=== PATIENT | male | born 1935 | race Caucasian/White ===

== ENCOUNTER 2019-04-26 22:52 | Inpatient (IN) | payer MEDICARE ==
[~2019-04-26] VITALS: Ht 167.6 cm; Wt 78.5 kg
[2019-04-26 22:50] VITALS: BP 124/58
[2019-04-26 22:52] VITALS: BP 124/60
[2019-04-27] MEDS ORDERED: DOCUSATE SODIUM 100MG CAPSULE PO PRN (00:45)
[2019-04-27] MEDS ORDERED: DEXTROSE 50% WATER 50ML SYRINGE IV PRN (00:45)
[2019-04-27] MEDS ORDERED: GUAIFENESIN 200MG/10ML SUGAR FREE UDC PO PRN (00:45)
[2019-04-27] MEDS ORDERED: NITROGLYCERIN 0.4MG TABLET SL SL PRN (00:45)
[2019-04-27] MEDS ORDERED: ACETAMINOPHEN 325MG TABLET PO PRN (00:45)
[2019-04-27] MEDS ORDERED: ONDANSETRON HCL 4MG/2ML INJ IV PRN (00:45)
[2019-04-27] MEDS ORDERED: CLONIDINE 0.1MG TABLET PO PRN (00:45)
[2019-04-27] MEDS ORDERED: TRAMADOL 50MG TABLET PO PRN (00:45)
[2019-04-27] MEDS ORDERED: IPRATROPIUM/ALBUTEROL 0.5-3(2.5)MG/3ML NEB HHN PRN (00:45)
[2019-04-27] MEDS ORDERED: MAGNESIUM/ALUMINUM HYDROXIDE/SIMETHICONE 30ML UDC PO PRN (00:45)
[2019-04-27 02:00] VITALS: BP 114/62
[2019-04-27] MEDS: DILTIAZEM HCL 30MG TABLET PO SCH ×3 (06:00→17:29)
[2019-04-27] MEDS: BLOOD SUGAR DIAGNOSTIC STRIP TEST SCH ×4 (06:22→21:30)
[2019-04-27] MEDS: LACTULOSE 20G/30ML UDC PO SCH ×3 (06:33→21:58)
[2019-04-27] MEDS: SPIRONOLACTONE 25MG TABLET PO SCH ×2 (06:34→17:28)
[2019-04-27] MEDS: INSULIN LISPRO 100 UNITS/ML SUBCUT SCH ×4 (06:50→21:30)
[2019-04-27 07:54] VITALS: BP 118/82
[2019-04-27 08:14] LABS: BASOPHILS % 0.9 % (0.0-2.0); HEMATOCRIT. 38.5 % (42.0-52.0); HEMOGLOBIN. 13.1 g/dL (14.0-18.0); LYMPHOCYTES % 10.7 % (20.0-50.0); MEAN CORPUSCULAR HEMOGLOBIN 34.6 pg (28.0-32.0); MEAN CORPUSCULAR VOLUME 101.3 fL (80.0-94.0); MEAN PLATELET VOLUME 10.3 fl (7.4-10.4); MONOCYTES % 5.8 % (2.0-8.0); NEUTROPHILS % 78.6 % (40.0-76.0); PLATELET 154 x1000/uL (130-400); RED CELL DISTRIBUTION WIDTH 14.3 % (11.6-14.6)
[2019-04-27 08:25] LABS: CHLORIDE 107 mEq/L (98-107)
[2019-04-27] MEDS: ZINC SULFATE 220 MG ( 50 ) CAPSULE PO SCH (08:26)
[2019-04-27] MEDS: ASCORBIC ACID 500 MG TABLET PO SCH ×2 (08:26→21:59)
[2019-04-27] MEDS: LEVETIRACETAM 500MG TABLET PO SCH ×2 (08:26→21:59)
[2019-04-27] MEDS: FAMOTIDINE 20MG TABLET PO SCH ×2 (08:27→21:59)
[2019-04-27] MEDS: SULFAMETHOXAZOLE/TRIMETHOPRIM 800/160MG TABLET PO SCH ×2 (08:27→21:59)
[2019-04-27] MEDS: FUROSEMIDE 20MG TABLET PO SCH ×2 (08:27→21:58)
[2019-04-27 20:00] VITALS: BP 97/56
[2019-04-28] MEDS: DILTIAZEM HCL 30MG TABLET PO SCH ×5 (00:09→23:47)
[2019-04-28] MEDS: LACTULOSE 20G/30ML UDC PO SCH ×3 (05:57→21:44)
[2019-04-28] MEDS: SPIRONOLACTONE 25MG TABLET PO SCH ×2 (05:57→17:46)
[2019-04-28] MEDS: BLOOD SUGAR DIAGNOSTIC STRIP TEST SCH ×4 (05:58→21:42)
[2019-04-28] MEDS: INSULIN LISPRO 100 UNITS/ML SUBCUT SCH ×4 (07:30→21:00)
[2019-04-28 08:00] VITALS: BP 120/78
[2019-04-28] MEDS: SULFAMETHOXAZOLE/TRIMETHOPRIM 800/160MG TABLET PO SCH ×2 (10:11→21:41)
[2019-04-28] MEDS: LEVETIRACETAM 500MG TABLET PO SCH ×2 (10:11→21:41)
[2019-04-28] MEDS: FUROSEMIDE 20MG TABLET PO SCH ×2 (10:11→21:41)
[2019-04-28] MEDS: ASCORBIC ACID 500 MG TABLET PO SCH ×2 (10:11→21:41)
[2019-04-28] MEDS: FAMOTIDINE 20MG TABLET PO SCH ×2 (10:11→21:41)
[2019-04-28] MEDS: ZINC SULFATE 220 MG ( 50 ) CAPSULE PO SCH (10:11)
[2019-04-28] MEDS: NYSTATIN POWDER 15GM TOP SCH ×2 (13:26→21:49)
[2019-04-28 20:00] VITALS: BP 115/55
[2019-04-28 20:30] LABS: CLARITY URINE CLOUDY (CLEAR); COLOR URINE YELLOW (YELLOW); KETONES URINE NEGATIVE (NEGATIVE); LEUKOCYTE ESTERASE URINE 1+ (NEGATIVE); NITRITE URINE NEGATIVE (NEGATIVE); OCCULT BLOOD URINE NEGATIVE (NEGATIVE); PH URINE 5.5 (4.5-8.0); PROTEIN URINE TRACE (NEGATIVE); SPECIFIC GRAVITY URINE 1.018 (1.005-1.030); UROBILINOGEN URINE 0.2 E.U./dL (0.2-1.0)
[2019-04-29] MEDS ORDERED: MIRT7.5T11 MT (02:20)
[2019-04-29] MEDS ORDERED: PRAV10TA35 MT (02:20)
[2019-04-29] MEDS: LACTULOSE 20G/30ML UDC PO SCH (05:49)
[2019-04-29] MEDS: BLOOD SUGAR DIAGNOSTIC STRIP TEST SCH ×4 (05:49→21:54)
[2019-04-29] MEDS: DILTIAZEM HCL 30MG TABLET PO SCH ×3 (05:50→17:48)
[2019-04-29] MEDS: SPIRONOLACTONE 25MG TABLET PO SCH ×2 (05:50→17:48)
[2019-04-29] MEDS: INSULIN LISPRO 100 UNITS/ML SUBCUT SCH ×4 (06:00→21:54)
[2019-04-29 07:48] LABS: EOSINOPHILS % 2.9 % (0.0-5.0); HEMATOCRIT. 39.1 % (42.0-52.0); HEMOGLOBIN. 13.4 g/dL (14.0-18.0); LYMPHOCYTES % 10.4 % (20.0-50.0); MEAN CORPUSCULAR HEMOGLOBIN 34.6 pg (28.0-32.0); NEUTROPHILS % 78.7 % (40.0-76.0); PLATELET 184 x1000/uL (130-400); RED BLOOD CELL COUNT 3.87 mill/uL (4.7-6.1); RED CELL DISTRIBUTION WIDTH 14.3 % (11.6-14.6)
[2019-04-29 08:16] VITALS: BP 126/69
[2019-04-29 08:55] LABS: PHOSPHORUS 3.6 mg/dL (2.5-4.9)
[2019-04-29 10:25] LABS: FOLIC ACID (FOLATE) SERUM 19.7 ng/mL (>5.38)
[2019-04-29] MEDS: LEVETIRACETAM 500MG TABLET PO SCH ×2 (10:35→21:10)
[2019-04-29] MEDS: ASCORBIC ACID 500 MG TABLET PO SCH ×2 (10:36→21:10)
[2019-04-29] MEDS: FAMOTIDINE 20MG TABLET PO SCH (10:36)
[2019-04-29] MEDS: SULFAMETHOXAZOLE/TRIMETHOPRIM 800/160MG TABLET PO SCH ×2 (10:36→21:10)
[2019-04-29] MEDS: FUROSEMIDE 20MG TABLET PO SCH ×2 (10:36→21:10)
[2019-04-29] MEDS: ZINC SULFATE 220 MG ( 50 ) CAPSULE PO SCH (10:36)
[2019-04-29] MEDS: NYSTATIN POWDER 15GM TOP SCH ×2 (10:36→21:27)
[2019-04-29] MEDS ORDERED: LACTULOSE 20G/30ML UDC PO PRN (12:00)
[2019-04-29 20:00] VITALS: BP 106/68
[2019-04-30] MEDS: BLOOD SUGAR DIAGNOSTIC STRIP TEST SCH ×4 (06:14→21:21)
[2019-04-30] MEDS: SPIRONOLACTONE 25MG TABLET PO SCH ×2 (06:18→17:30)
[2019-04-30] MEDS: DILTIAZEM HCL 30MG TABLET PO SCH ×5 (06:18→17:31)
[2019-04-30] MEDS: INSULIN LISPRO 100 UNITS/ML SUBCUT SCH ×4 (09:00→21:00)
[2019-04-30 09:07] VITALS: BP 132/72
[2019-04-30] MEDS: FAMOTIDINE 20MG TABLET PO SCH (09:13)
[2019-04-30] MEDS: NYSTATIN POWDER 15GM TOP SCH ×2 (09:13→21:22)
[2019-04-30] MEDS: SULFAMETHOXAZOLE/TRIMETHOPRIM 800/160MG TABLET PO SCH ×2 (09:13→21:21)
[2019-04-30] MEDS: FUROSEMIDE 20MG TABLET PO SCH ×2 (09:13→21:21)
[2019-04-30] MEDS: LEVETIRACETAM 500MG TABLET PO SCH ×2 (09:13→21:21)
[2019-04-30] MEDS: ZINC SULFATE 220 MG ( 50 ) CAPSULE PO SCH (09:13)
[2019-04-30] MEDS: ASCORBIC ACID 500 MG TABLET PO SCH ×2 (09:13→21:21)
[2019-04-30 20:00] VITALS: BP 115/54
[2019-05-01] MEDS: BLOOD SUGAR DIAGNOSTIC STRIP TEST SCH ×4 (06:36→21:27)
[2019-05-01] MEDS: SPIRONOLACTONE 25MG TABLET PO SCH ×2 (06:37→17:19)
[2019-05-01] MEDS: DILTIAZEM HCL 30MG TABLET PO SCH ×5 (06:37→23:49)
[2019-05-01] MEDS: INSULIN LISPRO 100 UNITS/ML SUBCUT SCH ×4 (06:40→21:31)
[2019-05-01 07:16] LABS: BASOPHILS % 1.4 % (0.0-2.0); EOSINOPHILS % 3.8 % (0.0-5.0); HEMATOCRIT. 38.5 % (42.0-52.0); HEMOGLOBIN. 13.1 g/dL (14.0-18.0); LYMPHOCYTES % 17.3 % (20.0-50.0); MEAN CORPUSCULAR HEMOGLOBIN 34.2 pg (28.0-32.0); MEAN CORPUSCULAR VOLUME 100.4 fL (80.0-94.0); MEAN PLATELET VOLUME 9.9 fl (7.4-10.4); MONOCYTES % 9.3 % (2.0-8.0); NEUTROPHILS % 68.2 % (40.0-76.0); PLATELET 193 x1000/uL (130-400); RED BLOOD CELL COUNT 3.83 mill/uL (4.7-6.1); RED CELL DISTRIBUTION WIDTH 14.5 % (11.6-14.6)
[2019-05-01 07:53] VITALS: BP 116/56
[2019-05-01] MEDS: ZINC SULFATE 220 MG ( 50 ) CAPSULE PO SCH (08:47)
[2019-05-01] MEDS: FAMOTIDINE 20MG TABLET PO SCH (08:47)
[2019-05-01] MEDS: LEVETIRACETAM 500MG TABLET PO SCH ×2 (08:47→21:25)
[2019-05-01] MEDS: ASCORBIC ACID 500 MG TABLET PO SCH ×2 (08:47→21:26)
[2019-05-01] MEDS: FUROSEMIDE 20MG TABLET PO SCH ×2 (08:47→21:25)
[2019-05-01] MEDS: NYSTATIN POWDER 15GM TOP SCH ×2 (08:47→21:27)
[2019-05-01] MEDS: SULFAMETHOXAZOLE/TRIMETHOPRIM 800/160MG TABLET PO SCH ×2 (08:47→21:25)
[2019-05-01] MEDS: LACTULOSE 20G/30ML UDC PO SCH ×2 (15:12→21:29)
[2019-05-01 20:00] VITALS: BP 115/62
[2019-05-02] MEDS: DILTIAZEM HCL 30MG TABLET PO SCH ×3 (05:47→17:00)
[2019-05-02] MEDS: SPIRONOLACTONE 25MG TABLET PO SCH ×2 (05:47→17:00)
[2019-05-02] MEDS: BLOOD SUGAR DIAGNOSTIC STRIP TEST SCH ×4 (05:48→21:53)
[2019-05-02] MEDS: INSULIN LISPRO 100 UNITS/ML SUBCUT SCH ×4 (06:07→22:03)
[2019-05-02 08:00] VITALS: BP 107/53
[2019-05-02] MEDS: FAMOTIDINE 20MG TABLET PO SCH (08:31)
[2019-05-02] MEDS: ZINC SULFATE 220 MG ( 50 ) CAPSULE PO SCH (08:31)
[2019-05-02] MEDS: SULFAMETHOXAZOLE/TRIMETHOPRIM 800/160MG TABLET PO SCH ×2 (08:31→21:36)
[2019-05-02] MEDS: FUROSEMIDE 20MG TABLET PO SCH ×2 (08:31→21:36)
[2019-05-02] MEDS: LEVETIRACETAM 500MG TABLET PO SCH ×2 (08:31→21:36)
[2019-05-02] MEDS: ASCORBIC ACID 500 MG TABLET PO SCH ×2 (08:31→21:36)
[2019-05-02] MEDS: NYSTATIN POWDER 15GM TOP SCH ×2 (08:32→21:54)
[2019-05-02] MEDS: LACTULOSE 20G/30ML UDC PO SCH (08:32)
[2019-05-02] MEDS: NA PHOS,M-B/NA PHOS,DI-BA ENEMA 118ML PR NR ×2 (13:00→18:24)
[2019-05-02] MEDS ORDERED: SORBITOL 70% SOLN 30ML PO SCH (13:45)
[2019-05-02] MEDS ORDERED: NA PHOS,M-B/NA PHOS,DI-BA ENEMA 118ML PR PRN (13:45)
[2019-05-02] MEDS ORDERED: NA PHOS,M-B/NA PHOS,DI-BA ENEMA 118ML PR SCH (13:45)
[2019-05-02] MEDS: BISACODYL 10MG SUPP PR SCH (16:08)
[2019-05-02] MEDS: DOCUSATE SODIUM 100MG CAPSULE PO SCH (16:57)
[2019-05-02 20:00] VITALS: BP 126/63
[2019-05-02] MEDS: POLYETHYLENE GLYCOL 3350 (17GM) 1 DOSE PACK PO SCH (21:00)
[2019-05-03] MEDS: SPIRONOLACTONE 25MG TABLET PO SCH ×2 (05:39→18:44)
[2019-05-03] MEDS: DILTIAZEM HCL 30MG TABLET PO SCH ×4 (05:55→18:00)
[2019-05-03] MEDS: BLOOD SUGAR DIAGNOSTIC STRIP TEST SCH ×4 (05:56→21:14)
[2019-05-03] MEDS: INSULIN LISPRO 100 UNITS/ML SUBCUT SCH ×4 (06:07→21:34)
[2019-05-03 07:54] VITALS: BP 113/69
[2019-05-03] MEDS: ZINC SULFATE 220 MG ( 50 ) CAPSULE PO SCH (08:52)
[2019-05-03] MEDS: FUROSEMIDE 20MG TABLET PO SCH ×2 (08:52→21:32)
[2019-05-03] MEDS: FAMOTIDINE 20MG TABLET PO SCH (08:52)
[2019-05-03] MEDS: LEVETIRACETAM 500MG TABLET PO SCH ×2 (08:52→21:32)
[2019-05-03] MEDS: ASCORBIC ACID 500 MG TABLET PO SCH ×2 (08:52→21:32)
[2019-05-03] MEDS: NYSTATIN POWDER 15GM TOP SCH ×2 (08:52→21:33)
[2019-05-03] MEDS: DOCUSATE SODIUM 100MG CAPSULE PO SCH ×2 (08:52→16:14)
[2019-05-03] MEDS: BISACODYL 10MG SUPP PR SCH (08:53)
[2019-05-03 20:00] VITALS: BP 102/48
[2019-05-03] MEDS: POLYETHYLENE GLYCOL 3350 (17GM) 1 DOSE PACK PO SCH (21:00)
[2019-05-04] MEDS: SPIRONOLACTONE 25MG TABLET PO SCH ×2 (05:59→17:20)
[2019-05-04] MEDS: DILTIAZEM HCL 30MG TABLET PO SCH ×5 (05:59→23:30)
[2019-05-04] MEDS: BLOOD SUGAR DIAGNOSTIC STRIP TEST SCH ×4 (06:00→20:07)
[2019-05-04] MEDS: INSULIN LISPRO 100 UNITS/ML SUBCUT SCH ×4 (06:39→20:18)
[2019-05-04 06:47] LABS: BASOPHILS % 1.3 % (0.0-2.0); EOSINOPHILS % 2.2 % (0.0-5.0); HEMATOCRIT. 39.3 % (42.0-52.0); HEMOGLOBIN. 13.5 g/dL (14.0-18.0); LYMPHOCYTES % 13.6 % (20.0-50.0); MEAN CORPUSCULAR HEMOGLOBIN 34.2 pg (28.0-32.0); MEAN CORPUSCULAR VOLUME 99.7 fL (80.0-94.0); MEAN PLATELET VOLUME 10.4 fl (7.4-10.4); MONOCYTES % 9.9 % (2.0-8.0); PLATELET 205 x1000/uL (130-400); RED BLOOD CELL COUNT 3.94 mill/uL (4.7-6.1); RED CELL DISTRIBUTION WIDTH 14.7 % (11.6-14.6)
[2019-05-04 07:19] LABS: CHLORIDE 101 mEq/L (98-107)
[2019-05-04 07:25] LABS: PHOSPHORUS 3.5 mg/dL (2.5-4.9)
[2019-05-04 08:00] VITALS: BP 116/69
[2019-05-04] MEDS: NYSTATIN POWDER 15GM TOP SCH ×2 (09:00→20:07)
[2019-05-04] MEDS: BISACODYL 10MG SUPP PR SCH ×2 (09:00→17:07)
[2019-05-04] MEDS: FUROSEMIDE 20MG TABLET PO SCH ×2 (10:00→20:07)
[2019-05-04] MEDS: DOCUSATE SODIUM 100MG CAPSULE PO SCH ×2 (10:00→17:20)
[2019-05-04] MEDS: FAMOTIDINE 20MG TABLET PO SCH (10:00)
[2019-05-04] MEDS: ASCORBIC ACID 500 MG TABLET PO SCH ×2 (10:00→20:07)
[2019-05-04] MEDS: ZINC SULFATE 220 MG ( 50 ) CAPSULE PO SCH (10:00)
[2019-05-04] MEDS: LEVETIRACETAM 500MG TABLET PO SCH ×2 (10:00→20:07)
[2019-05-04] MEDS: LACTULOSE 20G/30ML UDC PO SCH ×3 (17:19→20:07)
[2019-05-04 19:15] LABS: 25-HYDROXY VITAMIN D3 22 ng/mL (.)
[2019-05-04 20:00] VITALS: BP 109/45
[2019-05-04] MEDS: POLYETHYLENE GLYCOL 3350 (17GM) 1 DOSE PACK PO SCH (20:07)
[2019-05-05] MEDS: DILTIAZEM HCL 30MG TABLET PO SCH ×3 (05:26→18:00)
[2019-05-05] MEDS: SPIRONOLACTONE 25MG TABLET PO SCH ×2 (06:02→18:05)
[2019-05-05] MEDS: BLOOD SUGAR DIAGNOSTIC STRIP TEST SCH ×4 (06:07→21:53)
[2019-05-05] MEDS: INSULIN LISPRO 100 UNITS/ML SUBCUT SCH ×4 (06:11→22:19)
[2019-05-05 08:18] VITALS: BP 106/66
[2019-05-05] MEDS: DOCUSATE SODIUM 100MG CAPSULE PO SCH ×2 (09:00→17:42)
[2019-05-05] MEDS: ZINC SULFATE 220 MG ( 50 ) CAPSULE PO SCH (09:54)
[2019-05-05] MEDS: FAMOTIDINE 20MG TABLET PO SCH (09:54)
[2019-05-05] MEDS: ASCORBIC ACID 500 MG TABLET PO SCH ×2 (09:54→21:53)
[2019-05-05] MEDS: FUROSEMIDE 20MG TABLET PO SCH ×2 (09:54→21:53)
[2019-05-05] MEDS: LEVETIRACETAM 500MG TABLET PO SCH ×2 (09:54→21:53)
[2019-05-05] MEDS ORDERED: ERGOCALCIFEROL 50000UNITS CAPSULE PO SCH (10:00)
[2019-05-05 10:13] LABS: CREATINE KINASE 74 IU/L (39-308)
[2019-05-05] MEDS: NYSTATIN POWDER 15GM TOP SCH ×2 (11:31→22:18)
[2019-05-05] MEDS: SODIUM CHLORIDE 0.45% 1,000 ML IV SCH (17:41)
[2019-05-05 20:00] VITALS: BP 111/66
[2019-05-05] MEDS: POLYETHYLENE GLYCOL 3350 (17GM) 1 DOSE PACK PO SCH (21:53)
[2019-05-06] MEDS: DILTIAZEM HCL 30MG TABLET PO SCH ×4 (00:16→17:14)
[2019-05-06] MEDS: SODIUM CHLORIDE 0.45% 1,000 ML IV SCH ×2 (00:17→17:51)
[2019-05-06] MEDS: SPIRONOLACTONE 25MG TABLET PO SCH ×2 (06:13→17:01)
[2019-05-06] MEDS: BLOOD SUGAR DIAGNOSTIC STRIP TEST SCH ×4 (06:13→21:58)
[2019-05-06] MEDS: INSULIN LISPRO 100 UNITS/ML SUBCUT SCH ×4 (06:24→22:07)
[2019-05-06 07:52] VITALS: BP 107/71
[2019-05-06] MEDS: DOCUSATE SODIUM 100MG CAPSULE PO SCH ×2 (08:50→17:01)
[2019-05-06] MEDS: FAMOTIDINE 20MG TABLET PO SCH (08:50)
[2019-05-06] MEDS: FUROSEMIDE 20MG TABLET PO SCH ×2 (08:50→21:58)
[2019-05-06] MEDS: ASCORBIC ACID 500 MG TABLET PO SCH ×2 (08:50→21:57)
[2019-05-06] MEDS: LEVETIRACETAM 500MG TABLET PO SCH ×2 (08:50→21:58)
[2019-05-06] MEDS: ZINC SULFATE 220 MG ( 50 ) CAPSULE PO SCH (08:50)
[2019-05-06] MEDS: BISACODYL 10MG SUPP PR SCH (08:50)
[2019-05-06] MEDS: NYSTATIN POWDER 15GM TOP SCH ×2 (08:54→22:08)
[2019-05-06 20:00] VITALS: BP 117/55
[2019-05-06] MEDS: POLYETHYLENE GLYCOL 3350 (17GM) 1 DOSE PACK PO SCH (21:58)
[2019-05-07] MEDS: BLOOD SUGAR DIAGNOSTIC STRIP TEST SCH ×4 (05:58→21:00)
[2019-05-07] MEDS: DILTIAZEM HCL 30MG TABLET PO SCH ×5 (05:58→23:47)
[2019-05-07] MEDS: INSULIN LISPRO 100 UNITS/ML SUBCUT SCH ×4 (05:58→21:43)
[2019-05-07] MEDS: SPIRONOLACTONE 25MG TABLET PO SCH ×2 (05:58→17:26)
[2019-05-07 07:23] LABS: BASOPHILS % 3.3 % (0.0-2.0); HEMATOCRIT. 38.3 % (42.0-52.0); HEMOGLOBIN. 13.3 g/dL (14.0-18.0); LYMPHOCYTES % 22.4 % (20.0-50.0); MEAN CORPUSCULAR HEMOGLOBIN 34.4 pg (28.0-32.0); MEAN CORPUSCULAR VOLUME 98.9 fL (80.0-94.0); MEAN PLATELET VOLUME 10.4 fl (7.4-10.4); MONOCYTES % 9.7 % (2.0-8.0); NEUTROPHILS % 61.6 % (40.0-76.0); PLATELET 224 x1000/uL (130-400); RED BLOOD CELL COUNT 3.87 mill/uL (4.7-6.1); RED CELL DISTRIBUTION WIDTH 14.3 % (11.6-14.6)
[2019-05-07 08:00] VITALS: BP 107/54
[2019-05-07] MEDS: ZINC SULFATE 220 MG ( 50 ) CAPSULE PO SCH (10:30)
[2019-05-07] MEDS: FUROSEMIDE 20MG TABLET PO SCH ×2 (10:30→21:36)
[2019-05-07] MEDS: DOCUSATE SODIUM 100MG CAPSULE PO SCH ×2 (10:30→17:26)
[2019-05-07] MEDS: ASCORBIC ACID 500 MG TABLET PO SCH ×2 (10:30→21:36)
[2019-05-07] MEDS: LEVETIRACETAM 500MG TABLET PO SCH ×2 (10:30→21:36)
[2019-05-07] MEDS: BISACODYL 10MG SUPP PR SCH (10:30)
[2019-05-07] MEDS: FAMOTIDINE 20MG TABLET PO SCH (10:30)
[2019-05-07] MEDS: SODIUM CHLORIDE 0.45% 1,000 ML IV SCH ×2 (10:31→22:00)
[2019-05-07] MEDS: NYSTATIN POWDER 15GM TOP SCH ×2 (10:31→21:45)
[2019-05-07 20:00] VITALS: BP 108/58
[2019-05-07] MEDS: POLYETHYLENE GLYCOL 3350 (17GM) 1 DOSE PACK PO SCH (21:36)
[2019-05-08] MEDS: SPIRONOLACTONE 25MG TABLET PO SCH ×2 (06:00→17:02)
[2019-05-08] MEDS: DILTIAZEM HCL 30MG TABLET PO SCH ×3 (06:00→17:02)
[2019-05-08] MEDS: BLOOD SUGAR DIAGNOSTIC STRIP TEST SCH ×4 (06:42→21:44)
[2019-05-08 07:57] VITALS: BP 125/73
[2019-05-08] MEDS: INSULIN LISPRO 100 UNITS/ML SUBCUT SCH ×4 (09:00→22:11)
[2019-05-08] MEDS: BISACODYL 10MG SUPP PR SCH (09:00)
[2019-05-08] MEDS: FUROSEMIDE 20MG TABLET PO SCH ×2 (09:32→21:44)
[2019-05-08] MEDS: FAMOTIDINE 20MG TABLET PO SCH (09:32)
[2019-05-08] MEDS: ASCORBIC ACID 500 MG TABLET PO SCH ×2 (09:32→21:44)
[2019-05-08] MEDS: DOCUSATE SODIUM 100MG CAPSULE PO SCH ×2 (09:32→17:01)
[2019-05-08] MEDS: LEVETIRACETAM 500MG TABLET PO SCH ×2 (09:33→21:44)
[2019-05-08] MEDS: ZINC SULFATE 220 MG ( 50 ) CAPSULE PO SCH (09:33)
[2019-05-08] MEDS: NYSTATIN POWDER 15GM TOP SCH ×2 (11:17→21:44)
[2019-05-08 20:00] VITALS: BP 104/58
[2019-05-08] MEDS: SODIUM CHLORIDE 0.45% 1,000 ML IV SCH (20:35)
[2019-05-08] MEDS: POLYETHYLENE GLYCOL 3350 (17GM) 1 DOSE PACK PO SCH (21:00)
[2019-05-09] MEDS: SODIUM CHLORIDE 0.45% 1,000 ML IV SCH (04:53)
[2019-05-09] MEDS: SPIRONOLACTONE 25MG TABLET PO SCH ×2 (05:06→17:21)
[2019-05-09] MEDS: DILTIAZEM HCL 30MG TABLET PO SCH ×4 (05:07→17:21)
[2019-05-09] MEDS: BLOOD SUGAR DIAGNOSTIC STRIP TEST SCH ×4 (06:52→20:38)
[2019-05-09] MEDS: INSULIN LISPRO 100 UNITS/ML SUBCUT SCH ×4 (06:53→20:37)
[2019-05-09 07:09] LABS: CHLORIDE 103 mEq/L (98-107)
[2019-05-09 07:18] LABS: BASOPHILS % 2.7 % (0.0-2.0); EOSINOPHILS % 3.3 % (0.0-5.0); HEMATOCRIT. 38.3 % (42.0-52.0); HEMOGLOBIN. 13.2 g/dL (14.0-18.0); LYMPHOCYTES % 16.6 % (20.0-50.0); MEAN CORPUSCULAR HEMOGLOBIN 34.3 pg (28.0-32.0); MEAN CORPUSCULAR VOLUME 99.2 fL (80.0-94.0); MEAN PLATELET VOLUME 10.7 fl (7.4-10.4); MONOCYTES % 8.8 % (2.0-8.0); NEUTROPHILS % 68.6 % (40.0-76.0); PHOSPHORUS 3.3 mg/dL (2.5-4.9); PLATELET 202 x1000/uL (130-400); RED BLOOD CELL COUNT 3.86 mill/uL (4.7-6.1)
[2019-05-09 08:42] VITALS: BP 127/63
[2019-05-09] MEDS: DOCUSATE SODIUM 100MG CAPSULE PO SCH ×2 (09:00→17:20)
[2019-05-09] MEDS: BISACODYL 10MG SUPP PR SCH (09:00)
[2019-05-09] MEDS: FAMOTIDINE 20MG TABLET PO SCH (09:01)
[2019-05-09] MEDS: LEVETIRACETAM 500MG TABLET PO SCH ×2 (09:01→20:35)
[2019-05-09] MEDS: ZINC SULFATE 220 MG ( 50 ) CAPSULE PO SCH (09:01)
[2019-05-09] MEDS: ASCORBIC ACID 500 MG TABLET PO SCH ×2 (09:01→20:35)
[2019-05-09] MEDS: FUROSEMIDE 20MG TABLET PO SCH ×2 (09:01→20:35)
[2019-05-09] MEDS: NYSTATIN POWDER 15GM TOP SCH ×2 (11:11→20:38)
[2019-05-09 12:00] VITALS: BP 102/62
[2019-05-09 20:00] VITALS: BP 104/59
[2019-05-09] MEDS: POLYETHYLENE GLYCOL 3350 (17GM) 1 DOSE PACK PO SCH (20:42)
[2019-05-10] MEDS: DILTIAZEM HCL 30MG TABLET PO SCH ×4 (00:28→17:00)
[2019-05-10] MEDS: BLOOD SUGAR DIAGNOSTIC STRIP TEST SCH ×4 (05:44→21:35)
[2019-05-10] MEDS: SPIRONOLACTONE 25MG TABLET PO SCH ×2 (05:44→17:01)
[2019-05-10] MEDS: INSULIN LISPRO 100 UNITS/ML SUBCUT SCH ×4 (05:53→22:12)
[2019-05-10 08:00] VITALS: BP 116/54
[2019-05-10] MEDS: ASCORBIC ACID 500 MG TABLET PO SCH ×2 (08:38→22:10)
[2019-05-10] MEDS: FAMOTIDINE 20MG TABLET PO SCH (08:38)
[2019-05-10] MEDS: ZINC SULFATE 220 MG ( 50 ) CAPSULE PO SCH (08:38)
[2019-05-10] MEDS: FUROSEMIDE 20MG TABLET PO SCH ×2 (08:38→22:10)
[2019-05-10] MEDS: LEVETIRACETAM 500MG TABLET PO SCH ×2 (08:38→22:10)
[2019-05-10] MEDS: DOCUSATE SODIUM 100MG CAPSULE PO SCH ×2 (08:38→16:41)
[2019-05-10] MEDS: NYSTATIN POWDER 15GM TOP SCH ×2 (08:38→21:00)
[2019-05-10] MEDS: BISACODYL 10MG SUPP PR SCH (08:45)
[2019-05-10 20:00] VITALS: BP 115/58
[2019-05-10] MEDS: POLYETHYLENE GLYCOL 3350 (17GM) 1 DOSE PACK PO SCH (22:10)
[2019-05-11] MEDS: DILTIAZEM HCL 30MG TABLET PO SCH ×3 (06:00→12:00)
[2019-05-11] MEDS: SPIRONOLACTONE 25MG TABLET PO SCH (06:00)
[2019-05-11] MEDS: BLOOD SUGAR DIAGNOSTIC STRIP TEST SCH ×2 (06:12→11:45)
[2019-05-11] MEDS: INSULIN LISPRO 100 UNITS/ML SUBCUT SCH ×2 (06:27→12:40)
[2019-05-11 06:49] LABS: BASOPHILS % 2.3 % (0.0-2.0); EOSINOPHILS % 2.3 % (0.0-5.0); HEMATOCRIT. 37.5 % (42.0-52.0); HEMOGLOBIN. 12.9 g/dL (14.0-18.0); LYMPHOCYTES % 17.7 % (20.0-50.0); MEAN CORPUSCULAR HEMOGLOBIN 34.1 pg (28.0-32.0); MEAN CORPUSCULAR VOLUME 99.5 fL (80.0-94.0); MEAN PLATELET VOLUME 10.3 fl (7.4-10.4); MONOCYTES % 9.5 % (2.0-8.0); NEUTROPHILS % 68.2 % (40.0-76.0); PLATELET 176 x1000/uL (130-400); RED BLOOD CELL COUNT 3.77 mill/uL (4.7-6.1); RED CELL DISTRIBUTION WIDTH 14.2 % (11.6-14.6)
[2019-05-11 07:57] VITALS: BP 109/65
[2019-05-11] MEDS: FAMOTIDINE 20MG TABLET PO SCH (08:57)
[2019-05-11] MEDS: ASCORBIC ACID 500 MG TABLET PO SCH (08:57)
[2019-05-11] MEDS: DOCUSATE SODIUM 100MG CAPSULE PO SCH (08:57)
[2019-05-11] MEDS: ZINC SULFATE 220 MG ( 50 ) CAPSULE PO SCH (08:58)
[2019-05-11] MEDS: LEVETIRACETAM 500MG TABLET PO SCH (08:58)
[2019-05-11] MEDS: BISACODYL 10MG SUPP PR SCH (08:58)
[2019-05-11] MEDS ORDERED: SPIRONOLACTONE 25MG TABLET PO SCH (09:00)
[2019-05-11] MEDS ORDERED: FUROSEMIDE 20MG TABLET PO SCH (09:00)
[2019-05-11] MEDS: NYSTATIN POWDER 15GM TOP SCH (09:30)
[2019-05-11 13:18] VITALS: BP 110/65
== END 2019-05-11 16:26 | DRG 70 ==
PROVIDERS: ADMIT Physical Medicine & Rehabilitation Spinal Cord Injury Medicine; ATTEND Internal Medicine
DX: G93.40 Encephalopathy, unspecified (principal); A41.9 Sepsis, unspecified organism; J18.9 Pneumonia, unspecified organism; N39.0 Urinary tract infection, site not specified; G96.0 Cerebrospinal fluid leak; I13.0 Hypertensive heart and chronic kidney disease with heart failure and stage 1 through stage 4 chronic kidney disease, or unspecified chronic kidney disease; E44.0 Moderate protein-calorie malnutrition; N17.9 Acute kidney failure, unspecified; J44.0 Chronic obstructive pulmonary disease with (acute) lower respiratory infection; R53.81 Other malaise; F06.31 Mood disorder due to known physiological condition with depressive features; I48.91 Unspecified atrial fibrillation; H54.7 Unspecified visual loss; N18.9 Chronic kidney disease, unspecified; E11.22 Type 2 diabetes mellitus with diabetic chronic kidney disease; L89.159 Pressure ulcer of sacral region, unspecified stage; B96.20 Unspecified Escherichia coli [E. coli] as the cause of diseases classified elsewhere; F39 Unspecified mood [affective] disorder; D63.8 Anemia in other chronic diseases classified elsewhere; E11.65 Type 2 diabetes mellitus with hyperglycemia; E55.9 Vitamin D deficiency, unspecified; F06.8 Other specified mental disorders due to known physiological condition; I50.9 Heart failure, unspecified; R13.10 Dysphagia, unspecified; Z87.891 Personal history of nicotine dependence; Z79.4 Long term (current) use of insulin; Z82.49 Family history of ischemic heart disease and other diseases of the circulatory system; Z68.27 Body mass index [BMI] 27.0-27.9, adult
CPT/HCPCS: 36415; 71045; 76770; 80048; 81003; 82140; 82306; 82542; 82550; 82607; 82728; 82746; 82962; 83540; 83550; 83735; 84100; 84134; 84443; 92523; 92610; 93970; 97112; 97116; 97150; 97162; 97167; 97530; 97535; J1815